=== PATIENT | female | born 1945 | race Caucasian/White ===

== ENCOUNTER 2017-04-29 06:27 | Day surgery (SDC) | payer MEDICARE, OTHER ==
--- NOTE | ~2017-04-29 | EGD ---
EGD REPORT [facility] [address] [address] NAME: VERITO GARZA : [birth year] [place] [facility] [place] [id number] AGE: 72 ADM/REG DATE : 04/29/17 MR#: [id number] REPORT SERV DATE: 04/29/17 DICTATED BY: DATE: REPORT STATUS : Draft TRANSCRIBED BY: [employer] DATE: 04/29/17 [facility] Patient Name: Verito Garza Date of : 1945 Attending MD: MANUEL HARDY MD Procedure Date No Time: 04/29/2017 Procedure: Colonoscopy Indications: Abdominal pain in the left lower quadrant, Abdominal pain in the right lower quadrant, Clinically significant diarrhea of unexplained origin, Abnormal CT of the GI tract, Fecal incontinence Referring MD: MARY LOU KEARNEY Medicines: as per anesthesia Complications: No immediate complications. Procedure: Pre-Anesthesia Assessment: - ASA Grade Assessment: III - A patient with severe systemic disease. After I obtained informed consent, the scope was passed under direct vision. Throughout the procedure, the patient's blood pressure, pulse, and oxygen saturations were monitored continuously. The [facility] [id number] was introduced through the anus and advanced to the sigmoid colon. The colonoscopy was somewhat difficult due to a tortuous colon. The patient tolerated the procedure. The quality of the bowel preparation was adequate to identify polyps. Findings: The perianal and digital rectal examinations were normal. sharp angle at 20cm scope would not pass Four biopsies were obtained in the rectum and in the sigmoid colon with cold forceps for histology. Impression: - Four biopsies were obtained in the rectum and in the sigmoid colon. Recommendation: - Await pathology results. - Perform an air contrast barium enema in 2 weeks. Procedure Code(s): --- Professional --- 84566, 52, Colonoscopy, flexible, proximal to splenic flexure; with biopsy, single or multiple Diagnosis Code(s): --- Professional --- R10.32, Left lower quadrant pain EGD REPORT [place] [address] [facility] [place]. [address] NAME: VERITO GARZA : [birth year] [place] [facility] [place] [id number] AGE: 72 ADM/REG DATE : 04/29/17 MR#: [id number] REPORT SERV DATE: 04/29/17 DICTATED BY: DATE: REPORT STATUS : Draft TRANSCRIBED BY: [employer] DATE: 04/29/17 R10.31, Right lower quadrant pain R19.7, Diarrhea, unspecified R93.3, Abnormal findings on diagnostic imaging of other parts of digestive tract R15.9, Full incontinence of feces CPT copyright 2013 [employer]. All rights reserved. The codes documented in this report are preliminary and upon home connect lpn review may be revised to meet current compliance requirements. MANUEL HARDY MD 04/29/2017 9:10 AM This report has been signed electronically. Number of Addenda: 0 Note Initiated On: 04/29/2017 6:36 AM Scope Withdrawal Time 0 hours 0 minutes 0 seconds
--- NOTE | ~2017-04-29 | EGD ---
EGD REPORT [facility] [address] [address] NAME: VERITO GARZA : [birth year] [place] [facility] [place] [id number] AGE: 72 ADM/REG DATE : 04/29/17 MR#: [id number] REPORT SERV DATE: 04/29/17 DICTATED BY: MANUEL HARDY DATE: 04/29/17 REPORT STATUS : Draft TRANSCRIBED BY: [facility] DATE: 04/29/17 Endoscopy Center Patient Name: Verito Garza Date of : 1945 Attending MD: MANUEL HARDY MD Procedure Date No Time: 04/29/2017 Procedure: Upper GI endoscopy Indications: Dysphagia, Diarrhea Referring MD: MARY LOU KEARNEY Medicines: as per anesthesia Complications: No immediate complications. Procedure: Pre-Anesthesia Assessment: - ASA Grade Assessment: III - A patient with severe systemic disease. After obtaining informed consent, the endoscope was passed under direct vision. Throughout the procedure, the patient's blood pressure, pulse, and oxygen saturations were monitored continuously. The GIF H190 [id number] was introduced through the mouth, and advanced to the third part of duodenum. The upper GI endoscopy was accomplished without difficulty. The patient tolerated the procedure. Findings: The examined esophagus was normal. The scope was withdrawn. Dilation was performed with a Barahona dilator with no resistance at 46 Fr. The entire examined stomach was normal. The cardia and gastric fundus were normal on retroflexion. The examined duodenum was normal. Biopsies were taken with a cold forceps for histology. Impression: - Normal esophagus. Dilated. - Normal stomach. - Normal examined duodenum. Biopsied. Recommendation: - Await pathology results. Procedure Code(s): --- Professional --- 89373, Esophagogastroduodenoscopy, flexible, transoral; with biopsy, single or multiple 67225, Dilation of esophagus, by unguided sound or bougie, single or multiple passes Diagnosis Code(s): --- Professional --- R13.10, Dysphagia, unspecified EGD REPORT [facility] [address] [place]. [address] NAME: VERITO GARZA : [birth year] [place] [facility] [place] [id number] AGE: 72 ADM/REG DATE : 04/29/17 MR#: [id number] REPORT SERV DATE: 04/29/17 DICTATED BY: MANUEL HARDY. DATE: 04/29/17 REPORT STATUS : Draft TRANSCRIBED BY: [employer] DATE: 04/29/17 R19.7, Diarrhea, unspecified CPT copyright 2013 [employer]. All rights reserved. The codes documented in this report are preliminary and upon antisqueak applier review may be revised to meet current compliance requirements. MANUEL HARDY MD 04/29/2017 8:50 AM This report has been signed electronically. Number of Addenda: 0 Note Initiated On: 04/29/2017 8:24 AM Scope Withdrawal Time 0 hours 0 minutes 0 seconds [address] [place] [address]
[~2017-04-29 06:27] MED LIST: ADVIL PO; COZ50 PO; GLUCXL10 PO; GLUCXL5 PO; HYDROCHLOROT25 MG PO; OGEN.625 PO; P1 PO; PROTONIX PO; REMICADE IV; VITAMIN D31000 UNIT PO; VOLT75 PO
[2017-08-29] MEDS ORDERED: NOVOPEN SC (13:35)
[2017-08-29] MEDS ORDERED: LEVEMFLXPN SC (13:35)
[2017-08-29] MEDS ORDERED: ESTRACE0.5 MG PO (13:38)
== END 2017-04-29 23:59 | disposition home or self-care (01) ==
LOC: DMU 06:27
PROVIDERS: Internal Medicine Gastroenterology
PROC: 0DBP8ZX Excision of Rectum, Via Natural or Artificial Opening Endoscopic, Diagnostic (ICD-10-PCS; principal; 2017-04-29 08:00)
PROC: 0DBN8ZX Excision of Sigmoid Colon, Via Natural or Artificial Opening Endoscopic, Diagnostic (ICD-10-PCS; 2017-04-29 08:00)
PROC: 0D758ZZ Dilation of Esophagus, Via Natural or Artificial Opening Endoscopic (ICD-10-PCS; 2017-04-29 08:00)
DX: R13.10 Dysphagia, unspecified (principal); R10.31 Right lower quadrant pain; R10.32 Left lower quadrant pain; I10 Essential (primary) hypertension; E11.9 Type 2 diabetes mellitus without complications; M32.9 Systemic lupus erythematosus, unspecified; M06.9 Rheumatoid arthritis, unspecified; Z79.52 Long term (current) use of systemic steroids; Z79.1 Long term (current) use of non-steroidal anti-inflammatories (NSAID); Z79.899 Other long term (current) drug therapy; Z88.0 Allergy status to penicillin; Z88.2 Allergy status to sulfonamides; Z88.5 Allergy status to narcotic agent; Z88.6 Allergy status to analgesic agent; Z91.040 Latex allergy status
CPT/HCPCS: 82962; 88305

== ENCOUNTER 2017-05-24 23:55 | Observation (INO) | payer MEDICARE, OTHER ==
--- NOTE | ~2017-05-24 | DS ---
Discharge Summary [facility] [address] [place]. [address] NAME: VERITO RIVERA : [birth year] STATUS : DIS [facility] PAT#: [id number] AGE: 72 ADM/REG DATE : 05/25/17 MR#: [id number] REPORT SERV DATE: 05/29/17 DICTATED BY: AMERICO HOWELL DATE: 05/26/17 REPORT STATUS : Draft TRANSCRIBED BY: SHERRI DATE: 05/26/17 ADMISSION DATE: 05/25/2017 DISCHARGE DATE: 05/26/2017 PRINCIPAL DIAGNOSIS: Acute pleuritis in the setting of mixed connective tissue disease. SECONDARY DIAGNOSES: Possible pericarditis, generalized weakness with myopathy, chronic mediastinal lymphadenopathy, type 2 diabetes. HISTORY OF PRESENT ILLNESS: Please see Dr. Valerio's dictation on 05/25. HOSPITAL COURSE: Admitted with severe chest pain and shortness of breath. A CT revealed some mediastinal lymphadenopathy. Cardiology and Pulmonology had been consulted, but upon further discussion with the patient and a physical exam, the patient was found to have full reproducibility of the chest pain upon palpation or deep inspiration. The mediastinal adenopathy was found to have been present seven years ago, and no acute cardiology or pulmonary workup was necessary. However, instead, the patient received Toradol with immediate resolution of symptoms, and further discussion was held that she would probably benefit from higher doses of prednisone. She was increased to 40 mg daily, anticipating a tapering dose down to 10 with persistence at 10 mg until she followed up with Dr. Vitale of Rheumatology at [place]. Blood pressure also had been high, and meds there were also adjusted with daily metoprolol added to her regimen in addition to the Cozaar and hydrochlorothiazide she already was taking. She would continue her home regimen of glipizide with anticipation of higher than typical blood sugars while she is on steroids. She was instructed to discontinue the hormones, but okay to continue her diclofenac and Protonix. She would follow up with Dr. Patsy Solis in one to two weeks and Dr. Vitale of Rheumatology at [place]. Activity as tolerated. DICTATED BY: Bonita Boudreaux/SHERRI Americo Howell M.D. / [id number] CC: Bonita Boudreaux M.D. Joseph Huston, MD
--- NOTE | ~2017-05-24 | DS ---
Discharge Summary [place] [id number] [id number] NAME: VERITO RIVERA : [birth year] STATUS : DIS [facility] PAT#: [id number] AGE: 72 ADM/REG DATE : 05/25/17 MR#: [id number] REPORT SERV DATE: 05/27/17 DICTATED BY: AMERICO HOWELL DATE: 05/26/17 REPORT STATUS : Draft TRANSCRIBED BY: MODL DATE: 05/26/17 ADMISSION DATE: 05/25/2017 DISCHARGE DATE: 05/26/2017 ADDENDUM: Please note also the patient's CPK was found to be 464 with proximal muscle weakness concerning for myopathy, and anti-Shelbi-1 antibody and aldolase were ordered and the results of which are pending. However, she did seem to have some symptomatic improvement of her muscle weakness with the steroids and it was felt important to follow up these lab tests and her physical function in the future. DICTATED BY: Bonita Boudreaux/SHERRI Americo Howell M.D. / [id number] CC: Bonita Boudreaux M.D. Joseph Hutson, MD
--- NOTE | ~2017-05-24 | HP ---
History And Physical [place] [address] [facility] [place]. [address] NAME: VERITO RIVERA : [birth year] STATUS : ADM [facility] PAT#: [id number] AGE: 72 ADM/REG DATE : 05/25/17 MR#: [id number] REPORT SERV DATE: 05/25/17 DICTATED BY: SHAUN GRANADOS DATE: 05/25/17 REPORT STATUS : Draft TRANSCRIBED BY: MODL DATE: 05/25/17 DATE OF ADMISSION: 05/25/2017 CHIEF COMPLAINT: A 72-year-old female presenting with chest pain. HISTORY OF PRESENT ILLNESS: The patient's history was obtained through careful interview with the patient, coupled with [facility]. The patient states that about 24 hours prior to admission, she began to develop chest pain, it is felt mostly in the middle of the chest, but then radiates up into her neck, her teeth and her head, all the way to the back of her neck as well. A pressure-like quality, aching quality, up to 10/10 severity associated with shortness of breath and nausea, but no vomiting. She has noticed some chills, but no fevers. No palpitations. No lightheadedness. She has a complaint of recent increasing leg pain and weakness. She has been evaluated for this at [facility] [place] with a negative bone scan and essentially negative nerve conduction study? but she does not report any new leg symptoms leading up to this admission. She denies any specific arthritis issues recently. REVIEW OF SYSTEMS: Otherwise, a 14-point review of systems was obtained and was negative. PAST MEDICAL HISTORY: 1. Diabetes. 2. Rheumatoid arthritis seen at one point by Dr. Vianca Mackey, but now sees Dr. Rj Vitale at [facility], [place], on Remicade, intolerant of methotrexate. 3. Lupus and Sjogren's. 4. Gastroesophageal reflux disorder. 5. Fibromyalgia. 6. Left bundle-branch block. 7. Some kind of a neuromuscular disorder. PAST SURGICAL HISTORY: 1. Cholecystectomy. 2. Appendectomy. 3. Hysterectomy. ALLERGIES: OXYCODONE, SULFA, CODEINE, NAPROXEN, PENICILLIN, MOBIC, LATEX. SOCIAL HISTORY: No tobacco abuse. No alcohol abuse. 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 Is . with pacemaker and prostate cancer. The patient has a disabled daughter, who she still takes care of. History And Physical [address] [place]. [address] NAME: VERITO RIVERA : [birth year] STATUS : ADM [facility] PAT#: [id number] AGE: 72 ADM/REG DATE : 05/25/17 MR#: [id number] REPORT SERV DATE: 05/25/17 DICTATED BY: SHAUN GRANADOS DATE: 05/25/17 REPORT STATUS : Draft TRANSCRIBED BY: SHERRI DATE: 05/25/17 FAMILY HISTORY: Heart disease and diabetes. CURRENT MEDICATIONS: Include vitamin D, diclofenac 75 mg at bedtime, hormone, glipizide XL 10 mg daily, hydrochlorothiazide 12.5 mg p.o. b.i.d., Remicade every 8 weeks, Cozaar 50 mg p.o. b.i.d., Protonix 40 mg daily, prednisone 2 mg p.o. daily. PHYSICAL EXAMINATION: VITAL SIGNS: Temperature 97.8, pulse 78, blood pressure 207/93, respiratory rate 18, and O2 saturation 94% on room air. GENERAL: A pleasant, cooperative female, no evidence of acute distress at the time of my evaluation. HEENT: Pupils equal, round, and reactive to light. No conjunctival pallor. No scleral icterus. Nares are patent. Oropharynx is clear of obstruction. Moist mucous membranes. NECK: Trachea midline. No thyromegaly. LYMPH: No cervical lymphadenopathy. No supraclavicular lymphadenopathy. RESPIRATORY: Totally clear to auscultation at bases. No wheezes, no rales, no rhonchi. A normal respiratory effort. CARDIOVASCULAR: Regular rate and rhythm. No murmurs, rubs, or gallops. No extremity edema is appreciated. ABDOMEN: Soft, nontender, nondistended. Normal bowel sounds auscultated throughout. No hepatosplenomegaly. DERMATOLOGICAL: Warm and dry extremities. No pallor. No cyanosis. PSYCHIATRIC: Normal affect. Good mood. Alert and oriented x3. LABORATORY DATA: White blood cell count 10.9, hemoglobin 14, hematocrit 39, platelets 220. Sodium 136, potassium 4.1, chloride 101, bicarb 26, BUN 16, creatinine 0.63, glucose 166. Troponin negative. INR 1.0. AST 41, ALT 72, alkaline phosphatase 57, total bilirubin 0.4. STUDIES: 1. Chest x-ray by my own evaluation shows no acute cardiopulmonary process. 2. CT angiogram of the chest shows no pulmonary embolism, but mediastinal lymphadenopathy up to 1.8 cm. 3. EKG by my own evaluation shows sinus rhythm, left bundle-branch block. ASSESSMENT AND PLAN: 1. Chest pain. Came to [facility] because she sees Dr. Luque, securities attorney outpatient. So, we will consult him to follow with the patient as well. Check a nuclear cardiac stress test. Start aspirin. 2. Mediastinal lymphadenopathy. Obtain a Pulmonary consult. Does the patient need a biopsy? 3. Rheumatoid arthritis, lupus and Sjogren's request records from Dr. Mackey's office. Loading Checker to check labs. Now sees Dr. Rj Vitale, cake icer and packer at [facility], [place]. Check an ESR. Check CRP. Check DAVID. Check rheumatoid factor. Check complement level. 4. Diabetes. Check hemoglobin A1c. Place on sliding scale insulin. 5. Neuromuscular disease. Being evaluated at [facility] [place]. History And Physical [address] [address] NAME: VERITO RIVERA : [birth year] STATUS : ADM [facility] PAT#: [id number] AGE: 72 ADM/REG DATE : 05/25/17 MR#: [id number] REPORT SERV DATE: 05/25/17 DICTATED BY: SHAUN GRANADOS DATE: 05/25/17 REPORT STATUS : Draft TRANSCRIBED BY: [employer] DATE: 05/25/17 L/SHERRI Shaun Granados M.D. / [id number] CC: Bonita Boudreaux M.D.
[2017-05-24 23:28] LABS: BASOPHILS 0.3 %; BASOPHILS ABSOLUTE 0.03 10/3/uL (0.0-0.16); EOSINOPHILS 1.5 %; EOSINOPHILS ABSOLUTE 0.16 10/3/uL (0.0-0.53); HEMATOCRIT 39.3 % (36.0-48.0); HEMOGLOBIN 13.6 g/dL (12.0-16.0); IMMATURE GRANULOCYTES 0.3 %; IMMATURE GRANULOCYTES ABSOLUTE 0.03 10/3/uL (0.0-0.11); LYMPHOCYTES 29.3 %; LYMPHOCYTES ABSOLUTE 3.19 10/3/uL (0.67-4.30); MEAN CORPUS HGB CONC 34.6 g/dL (32.0-36.0); MEAN CORPUSCULAR HEMOGLOB 31.5 pg (26.0-34.0); MEAN PLATELET VOLUME 11.2 fL (9.2-13.0); MONOCYTES 14.1 %; MONOCYTES ABSOLUTE 1.54 10/3/uL (0.21-1.20); NEUTROPHILS 54.5 %; NEUTROPHILS ABSOLUTE 5.94 10/3/uL (2.02-8.40); PLATELET COUNT 220 10/3/uL (150-400); RBC DISTRIBUTION WIDTH 13.8 % (12.0-16.0); RED CELL COUNT 4.32 10/6/uL (4.0-5.6); WHITE BLOOD CELLS 10.9 10/3/uL (4.5-10.5)
[2017-05-24 23:30] LABS: MANUAL DIFF NO %
[2017-05-24 23:39] LABS: PARTIAL THROMBO TIME 23.4 SEC (22.5-37.2); PROTIME (NOT ORD) 12.7 SEC (12.0-14.5)
[2017-05-24 23:44] LABS: BUN (BLOOD UREA NITROGEN) 16 MG/DL (6-23); CALCIUM, SERUM 9.2 MG/DL (8.5-10.4); CHEST PAIN PROFILE TAT 0 Hrs 22 Mins; CHLORIDE, SERUM 101 MMOL/L (96-112); CO2 (CARBON DIOXIDE) 26 MMOL/L (24-34); CREATININE 0.63 MG/DL (0.55-1.02); GFR AFRICAN AMERICAN 104 ML/MIN (>=60); GFR NON AFRICAN AMERICAN 90 ML/MIN (>=60); GLUCOSE, SERUM 166 MG/DL (60-99); POTASSIUM, SERUM 4.1 MMOL/L (3.5-5.3); SODIUM, SERUM 136 MMOL/L (135-148); TROPONIN I <0.02 NG/ML (<0.05)
[2017-05-25 00:03] LABS: ALBUMIN 3.4 G/DL (3.5-5.0); TOTAL PROTEIN 7.9 G/DL (6.0-8.5)
[2017-05-25 00:04] LABS: DIRECT BILIRUBIN < 0.1 MG/DL (0.0-0.4); INDIRECT BILIRUBIN(NOT ORDER) 0.3 MG/DL (0.1-0.9); TOTAL BILIRUBIN 0.4 MG/DL (0-1.2)
[2017-05-25 00:05] LABS: ALKALINE PHOSPHATASE 57 U/L (45-117); SGOT(AST) 41 U/L (5-40); SGPT(ALT) 72 U/L (5-65)
[2017-05-25 08:02] LABS: BASOPHILS 0.2 %; BASOPHILS ABSOLUTE 0.02 10/3/uL (0.0-0.16); EOSINOPHILS 0.3 %; EOSINOPHILS ABSOLUTE 0.04 10/3/uL (0.0-0.53); HEMATOCRIT 37.2 % (36.0-48.0); HEMOGLOBIN 12.8 g/dL (12.0-16.0); IMMATURE GRANULOCYTES 0.2 %; IMMATURE GRANULOCYTES ABSOLUTE 0.03 10/3/uL (0.0-0.11); LYMPHOCYTES ABSOLUTE 3.17 10/3/uL (0.67-4.30); MEAN CORPUS HGB CONC 34.4 g/dL (32.0-36.0); MEAN CORPUSCULAR HEMOGLOB 31.1 pg (26.0-34.0); MEAN CORPUSCULAR VOLUME 90.3 fL (80-100); MEAN PLATELET VOLUME 11.2 fL (9.2-13.0); MONOCYTES 13.8 %; MONOCYTES ABSOLUTE 1.68 10/3/uL (0.21-1.20); NEUTROPHILS 59.5 %; NEUTROPHILS ABSOLUTE 7.24 10/3/uL (2.02-8.40); PLATELET COUNT 214 10/3/uL (150-400); RBC DISTRIBUTION WIDTH 13.9 % (12.0-16.0); RED CELL COUNT 4.12 10/6/uL (4.0-5.6); WHITE BLOOD CELLS 12.2 10/3/uL (4.5-10.5)
[2017-05-25 08:03] LABS: MANUAL DIFF NO %
[2017-05-25 08:09] LABS: INTERNATIONAL NORMAL RATI 1.1 UNITS (-); PROTIME (NOT ORD) 14.2 SEC (12.0-14.5)
[2017-05-25 08:10] LABS: PARTIAL THROMBO TIME 33.6 SEC (22.5-37.2)
[2017-05-25 08:21] LABS: COMPLEMENT C3 137 MG/DL (75-161)
[2017-05-25 08:22] LABS: C-REACTIVE PROTEIN 70.2 MG/L (<8.0); RHEUMATOID FACTOR QUANT < 10 IU/ML (0-15)
[2017-05-25 08:43] LABS: A/G RATIO 0.7 (0.7-1.9); ALBUMIN 3.1 G/DL (3.5-5.0); ALKALINE PHOSPHATASE 52 U/L (45-117); BUN (BLOOD UREA NITROGEN) 14 MG/DL (6-23); CALCIUM, SERUM 9.2 MG/DL (8.5-10.4); CHLORIDE, SERUM 102 MMOL/L (96-112); CO2 (CARBON DIOXIDE) 25 MMOL/L (24-34); CREATININE 0.57 MG/DL (0.55-1.02); GFR AFRICAN AMERICAN 107 ML/MIN (>=60); GFR NON AFRICAN AMERICAN 93 ML/MIN (>=60); GLOBULIN 4.3 G/DL (2.5-4.1); POTASSIUM, SERUM 3.9 MMOL/L (3.5-5.3); SGOT(AST) 30 U/L (5-40); SGPT(ALT) 57 U/L (5-65); SODIUM, SERUM 136 MMOL/L (135-148); TOTAL BILIRUBIN 0.8 MG/DL (0-1.2); TOTAL PROTEIN 7.4 G/DL (6.0-8.5); TROPONIN I 0.02 NG/ML (<0.05); ULTRASENSITIVE TSH 0.997 MCIU/ML (0.358-3.740)
[2017-05-25 08:44] LABS: GLUCOSE, SERUM 214 MG/DL (60-99)
[2017-05-25 08:47] LABS: SED RATE 53 MM/HR (0-20)
[2017-05-25 15:03] LABS: C-REACTIVE PROTEIN 96.3 MG/L (<8.0)
[2017-05-26 06:38] LABS: BASOPHILS 0.1 %; BASOPHILS ABSOLUTE 0.01 10/3/uL (0.0-0.16); EOSINOPHILS 0.1 %; EOSINOPHILS ABSOLUTE 0.01 10/3/uL (0.0-0.53); HEMATOCRIT 36.7 % (36.0-48.0); HEMOGLOBIN 12.6 g/dL (12.0-16.0); IMMATURE GRANULOCYTES 0.3 %; IMMATURE GRANULOCYTES ABSOLUTE 0.03 10/3/uL (0.0-0.11); LYMPHOCYTES 29.8 %; LYMPHOCYTES ABSOLUTE 2.99 10/3/uL (0.67-4.30); MEAN CORPUS HGB CONC 34.3 g/dL (32.0-36.0); MEAN CORPUSCULAR HEMOGLOB 31.4 pg (26.0-34.0); MEAN CORPUSCULAR VOLUME 91.5 fL (80-100); MEAN PLATELET VOLUME 11.3 fL (9.2-13.0); MONOCYTES 7.8 %; MONOCYTES ABSOLUTE 0.78 10/3/uL (0.21-1.20); NEUTROPHILS 61.9 %; NEUTROPHILS ABSOLUTE 6.21 10/3/uL (2.02-8.40); PLATELET COUNT 207 10/3/uL (150-400); RBC DISTRIBUTION WIDTH 13.7 % (12.0-16.0); RED CELL COUNT 4.01 10/6/uL (4.0-5.6)
[2017-05-26 06:40] LABS: MANUAL DIFF NO %
[2017-05-26 06:49] LABS: CALCIUM, SERUM 8.9 MG/DL (8.5-10.4); CHLORIDE, SERUM 101 MMOL/L (96-112); CO2 (CARBON DIOXIDE) 28 MMOL/L (24-34); CREATININE 0.61 MG/DL (0.55-1.02); GFR AFRICAN AMERICAN 105 ML/MIN (>=60); GFR NON AFRICAN AMERICAN 91 ML/MIN (>=60); GLUCOSE, SERUM 182 MG/DL (60-99); SODIUM, SERUM 136 MMOL/L (135-148)
[2017-05-26 06:50] LABS: BUN (BLOOD UREA NITROGEN) 23 MG/DL (6-23)
[2017-05-26] MEDS ORDERED: MAGOX4 PO (11:41)
[2017-05-26] MEDS ORDERED: P10 PO (11:41)
[2017-05-26] MEDS ORDERED: LOP25 PO (11:43)
[2017-05-26] MEDS ORDERED: COLCH6 PO (11:47)
[2017-05-27 18:49] LABS: ALDOLASE 7.1 U/L (1.2-7.6)
[2017-08-29] MEDS ORDERED: NOVOPEN SC (13:35)
[2017-08-29] MEDS ORDERED: LEVEMFLXPN SC (13:35)
[2017-08-29] MEDS ORDERED: ESTRACE0.5 MG PO (13:38)
== END 2017-05-26 16:17 | disposition home or self-care (01) ==
LOC: ER 23:55 → 6NO 05-25 02:22
PROVIDERS: Emergency Medicine; Hospitalist; Internal Medicine
DX: R09.1 Pleurisy (principal); M35.1 Other overlap syndromes; G70.9 Myoneural disorder, unspecified; M35.00 Sjogren syndrome, unspecified; R59.1 Generalized enlarged lymph nodes; E11.9 Type 2 diabetes mellitus without complications; M06.9 Rheumatoid arthritis, unspecified; M32.9 Systemic lupus erythematosus, unspecified; I10 Essential (primary) hypertension; K21.9 Gastro-esophageal reflux disease without esophagitis; E78.00 Pure hypercholesterolemia, unspecified; Z90.49 Acquired absence of other specified parts of digestive tract; Z90.710 Acquired absence of both cervix and uterus; Z88.2 Allergy status to sulfonamides; Z88.5 Allergy status to narcotic agent; Z88.0 Allergy status to penicillin; Z88.8 Allergy status to other drugs, medicaments and biological substances; Z91.040 Latex allergy status; Z98.890 Other specified postprocedural states
CPT/HCPCS: 71010; 71275; 80048; 80053; 80076; 82085; 82533; 82550; 82962; 83036; 83735; 84443; 84484; 85025; 85610; 85652; 85730; 86140; 86160; 86235; 86431; 93005; 96372; 96374; 96375; 96376; 99285; A9270-GY; G0378; J0360; J1720; J1885; Q9967